=== PATIENT | male | born 1940 | race Caucasian/White ===

== ENCOUNTER → 2017-04-08 11:04 | Outpatient (CLI) | payer MEDICARE, BC ==
[2015-06-08 07:26] VITALS: BMI 25.8
[~2017-04-08 11:04] MED LIST: ACETAMINOPHEN500 M1 PO; BAYER CHEWABLE81 MG PO; CIPRO250 MG PO; FEXOFENADINE HC60 MG PO; FISH OIL 1,0001 CA1 PO; MUCINEX600 MG PO; PERCOCET 5-3251 TAB PO; VITAMIN D2000 UNIT PO; ZESTRIL20 MG PO; ZOCOR40 MG PO
== END | disposition home or self-care (01) ==
LOC: D.CT 03-29 11:30
DX: R91.1 Solitary pulmonary nodule (principal)

== ENCOUNTER → 2017-11-19 13:18 | Outpatient (CLI) | payer MEDICARE, BC ==
[2015-06-08 07:26] VITALS: BMI 25.8
--- NOTE | ~2017-11-19 | EC ---
PATIENT:CANDIDO BRYSON DATE OF SERVICE: 11/19/17 SEX: M MEDICAL RECORD: [id number] DATE OF : 36 LOCATION:[facility] AGE OF PATIENT: 76 ADMISSION DATE: 11/19/17 REFERRING PHYSICIAN: INTERPRETING PHYSICIAN: ROXANNA ADKINS MD ECHOCARDIOGRAM REPORT ECHO CHARGES 4 ECHO COMPLETE CLINICAL DIAGNOSIS: CHEST PAIN/CAROTID BRUIT ECHOCARDIOGRAPHIC MEASUREMENTS (adult normal given) AC root (d.<3.7cm) 3.5 cm LV Septum d (<1.2 cm> 1.3 cm Valve Excursion 1.2 cm LV Septum (systole) 1.5 cm Left Atria (s.<4.0cm> 3.8 cm LVPW d(<1.2cm) 1.7 cm RV (d.<2.3cm) 3.2 cm LVPW (sytole) 2.1 cm LV diastole(<5.6CM) 4.9 cm MV E-F(>70mm/sec) cm LV systole 3.4 cm LVOT Diameter 1.3 cm MV exc.(>10mm) 1.2 cm Est.ejection fraction (50-75%) % Pericardial Effusion N DOPPLER: LVIT cm/sec A 101 cm/sec E 57.0 cm/sec LA cm/sec RVSP 38 mmHg LVOT 76 cm/sec AOP1/2T m/s Asc. Ao 191 cm/sec RVOT cm/sec RA cm/sec PA cm/sec AV Gradient Peak 14.65mmHg AV Mean 7.59 mmHg AV Area 1.0 cm MV Gradient Peak 5.69 mmHg MV Mean 2.01 mmHg MV Area cm COMMENTS: Geological Sample Tester: Hansa ASCENCIO Gifts Officer: 4 Dr. Adkins TAPE# PACS DATE OF SERVICE: 11/19/2017 PROCEDURE: Transthoracic echocardiogram. FINDINGS: 1. There is moderate concentric left ventricular hypertrophy with inflow characteristics consistent with diastolic dysfunction. 2. The left atrium is normal size, normal function. 3. The aortic valve appears to be thickened and sclerotic, is not well visualized, but there is no significant velocity across the aortic valve, but ECHOCARDIOGRAM REPORT [id number] CANDIDO BRYSON appears to have at least mild aortic stenosis. 4. The right ventricle is dilated with right ventricular hypertrophy with normal function. 5. The right atrium is dilated. 6. The mitral valve has mild mitral regurgitation. There is no obvious structural abnormalities. There is proximal flow convergence in the mitral valve. 7. The tricuspid valve has mild tricuspid regurgitation. RVSP at 38 mmHg. 8. The pericardium is normal. CONCLUSION: The patient has evidence of hypertensive heart disease. There is actually one area where there appears to be inferior basilar hypokinesis with possible resultant regional wall motion abnormalities, which would be consistent with possible previous infarction. TRANSINT:[id number] Voice Confirmation ID: [id number] DOCUMENT ID: [id number] ROXANNA ADKINS MD at 1252 CC: [id number] DICTATION DATE: 11/20/17 0923 SCOW DERRICK OPERATOR: 11/20/17 1230 [facility] CLI 11/19/17 [id number] [place] [address]
[~2017-11-19 13:18] MED LIST changes: -ACETAMINOPHEN500 M1 PO; +APAP325 MG PO; +FEXOFENADINE H180 MG PO; -FEXOFENADINE HC60 MG PO; -FISH OIL 1,0001 CA1 PO; +FISH OIL 1,2001 CAP PO; +TUMERIC CURCUMIN PO; +VITAMIN D31000 UNIT PO
== END | disposition home or self-care (01) ==
LOC: D.ECHO 13:18
DX: R07.9 Chest pain, unspecified (principal); R00.2 Palpitations; Z01.810 Encounter for preprocedural cardiovascular examination; R09.89 Other specified symptoms and signs involving the circulatory and respiratory systems

== ENCOUNTER 2017-11-22 07:48 | Outpatient (CLI) | payer MEDICARE, BC ==
[~2017-11-22] VITALS: Ht 177.8 cm; Wt 77.3 kg
--- NOTE | ~2017-11-22 | HEMODYNAMI ---
PATIENT:CANDIDO BRYSON MEDICAL RECORD: [id number] : 36 LOCATION:[facility] ADMISSION DATE: 11/22/17 Generatedon:11/22/20179:39 Patient name: CANDIDO BRYSON Patient #: [id number] SSN: : Date of study: 11/22/2017 Page: Of Hemodynamic Procedure Report Patient Data Patient Demographics Procedure consent was obtained First Name: CANDIDO Gender: Male Last Name: BRAYDON : 1940 Middle Initial: W Age: 76 year(s) Patient #: [id number] Race: Unknown Additional ID: [id number] Contact details Address: [address] [place] [address] State: [place] City: [facility] Zip code: [address] Past Medical History Allergies: No known allergies Admission Admission Data Admission Date: 11/22/2017 Admission Time: 7:48 Weight (lbs.): 174 Weight (kg.): 78.93 Lab Results Lab Result Date: 11/22/2017 Lab Result Time: 0:00 Biochemistry Name Units Result Min Max BUN mg/dl 18 --(---*)-- 7 18 Creatinine mg/dl 1.5 --(----)-* 0.6 1.3 CBC Name Units Result Min Max Hemoglobin g/dl 15 --(-*--)-- 13.5 17.5 Procedure Procedure Types Cath Procedure Diagnostic Procedure [facility] w/Coronaries Procedure Description Procedure Date Procedure Date: 11/22/2017 Procedure Start Time: 9:24 Procedure End Time: 9:38 Procedure Staff Name Function Ehsan Shaikh MD Performing Physician Anuradha Russell RT Monitor Leighton Avila RT Scrub Neil Ohara RN Nurse Procedure Data Cath Procedure Fluoroscopy Diagnostic fluoroscopy Total fluoroscopy Time: 2.2 time: 2.2 min min Diagnostic fluoroscopy Total fluoroscopy dose: 473 dose: 473 mGy mGy Contrast Material Contrast Material Type Amount (ml) Isovue 300 46 Entry Location Entry Primary Successful Side Size Upsize Upsize Entry Closure Chang ccessful Closure Location (Fr) 1 (Fr) 2 (Fr) Remarks Device Remarks Radial Right 6 Fr Mechanical artery Short Compression Estimated blood loss: 5 ml Diagnostic catheters Device Type Used For End Catheter Placement DIAGNOSTIC [place] 110cm 5 Procedure Fr catheter ([id number]) Procedure Complications No complications Procedure Medications Medication Administration Route Dosage Oxygen NC 2 l/min 0.9% NaCl I.V. 100 ml/hr Heparin Flush Bag added to field 2 bags (1000units/500ml NS) Radial Cocktail added to field 1 syringe (Verapomil 2mg/Nitro 400mcg/Heparin 1500units) Fentanyl I.V. 50 mcg Versed I.V. 1 mg Radial Cocktail I.A. 1 syringe (Verapomil 2mg/Nitro 400mcg/Heparin 1500units) Fentanyl I.V. 50 mcg Hemodynamics Rest HGB: 15 (g/dl) Heart Rate: 74 (bpm) Pressure Samples Time Site Value (mmHg) Purpose Heart Use Rate(bpm) 9:33 LV 120/-3,7 EDP 75 Snapshots Pre Cath Intra NCS Post Cath Vital Signs Time Heart Resp SPO2 etCO2 NIBP (mmHg) Rhythm Pain Sedation Rate (ipm) (%) (mmHg) Status Level (bpm) 9:07:46 84 16 98 0 145/86(118) NSR 0 (11) 10(A) , No pain 9:12:55 74 16 96 2.2 166/97(134) NSR 0 (11) 10(A) , No pain 9:17:33 70 15 96 0 165/90(118) NSR 0 (11) 10(A) , No pain 9:22:12 76 16 96 8.4 154/93(126) NSR 0 (11) 10(A) , No pain 9:26:45 78 15 100 9.9 135/76(110) NSR 0 (11) 9(A) , No pain 9:31:19 68 16 95 11.4 124/70(96) NSR 0 (11) 9(A) , No pain 9:35:51 68 15 96 20.6 132/74(96) NSR 0 (11) 9(A) , No pain Medications Time Medication Route Dose Verified Delivered Reason Notes E ffectiveness by by 9:14:28 Oxygen NC 2 l/min Ehsan Neil Per Neel car MD 9:14:39 0.9% NaCl I.V. 100 Ehsan Neil Per ml/hr Neel car MD 9:14:47 Heparin Flush added 2 bags Ehsan Neil used for Bag to Neel Ohara RN procedure (1000units/500ml field BUCKNER NS) 9:14:56 Radial Cocktail added 1 Ehsan Neil used for (Verapomil to syringe Neel Ohara RN procedure 2mg/Nitro field BUCKNER 400mcg/Heparin 1500units) 9:16:26 Fentanyl I.V. 50 mcg Ehsan Neil for sedation Neel Ohara RN, MD 9:16:32 Versed I.V. 1 mg Ehsanjerson Adamsy for sedation Neel Ohara RN, MD 9:25:51 Radial Cocktail I.A. 1 Ehsan Ehsan for (Verapomil syringe Neel Shaikh MD vasodilation 2mg/Nitro MD 400mcg/Heparin 1500units) 9:30:45 Fentanyl I.V. 50 mcg Ehsan Neil for sedation Neel Ohara RN, MD Procedure Log Time Note 8:45:31 Neil Ohara RN sent for patient. Start room use. 8:54:09 Time tracking: Regular hours 8:54:14 Plan of Care:Hemodynamics will remain stable., Cardiac rhythm will remain stable., Comfort level will be maintained., Respiratory function will remain adequate., Patient/ family verbilizes understanding of procedure., Procedure tolerated without complication., Recovers from procedure without complications.. 8:55:27 H&P Date Dictated: 11/21/2017 Within 30 days and on chart., H&P Addendum completed by physician on day of procedure. (MUST COMPLETE FOR ALL OUTPATIENTS). 8:55:48 Patient Weight : 174 lbs 8:56:12 Patient allergic to No known allergies 8:58:40 Lab Result : BUN 18 mg/dl 8:58:40 Lab Result : Creatinine 1.5 mg/dl 8:58:40 Lab Result : Hemoglobin 15 g/dl 9:01:44 Patient received from Pre/Post Procedure Room to CCL 1 Alert and oriented. Tansferred to table in Supine position. 9:01:46 Warm blankets applied, and aime hugger turned on for patient comfort. 9:01:46 Correct patient and procedure confirmed by team. 9:01:48 Signed procedure consent form obtained from patient. 9:01:49 ECG and BP/O2 sat monitors applied to patient. 9:06:56 Vital chart was started 9:14:28 Oxygen 2 l/min NC was administered by Neil Ohara RN; Per physician; 9:14:38 Baseline sample Acquired. 9:14:39 0.9% NaCl 100 ml/hr I.V. was administered by Neil Ohara RN; Per physician; 9:14:41 Rhythm: sinus rhythm 9:14:43 Full Disclosure recording started 9:14:44 Pre-procedure instructions explained to patient. 9:14:44 Pre-op teaching completed and patient verbalized understanding. 9:14:46 Family in patients room. 9:14:47 Heparin Flush Bag (1000units/500ml NS) 2 bags added to field was administered by Neil Ohara RN; used for procedure; 9::49 Patient NPO since Midnight. 9:14:51 Is the patient allergic to Iodine/contrast media? No. 9:14:56 Radial Cocktail (Verapomil 2mg/Nitro 400mcg/Heparin 1500units) 1 syringe added to field was administered by Neil Ohara RN; used for procedure; 9:14:57 Is patient on blood thinner?Yes 9:15:05 ACC The patient was administered the following blood thiners within the last 24 hours: ACCPlavix 9:15:08 Patient diabetic? No. 9:15:14 Previous problem with sedation/anesthesia? No ? 9:15:17 Snore? Yes 9:15:20 Sleep apnea? No 9:15:22 Deviated septum? No 9:15:23 Opens mouth fully? Yes 9:15:24 Sticks out tongue? Yes 9:15:27 Airway obstruction? No ? 9:15:34 Dentures? Yes IN TIGHT 9:15:37 Modified Jan's test Ulnar < 7 seconds 9:15:39 Patient pain scale 0/10 ?. 9:15:46 IV patent on arrival in left hand with 0.9% NaCl at O. 9:15:50 Lab results completed and on chart. 9:15:55 Right Radial & Right Groin area was prepped with chlora-prep and draped in sterile fashion 9:15:57 Alarms reviewed by R. N. 9:15:57 Sharps counted by scrub and verified by R.N. 9:15:58 --------ALL STOP TIME OUT------ 9:15:58 Final Timeout: patient, procedure, and site verified with staff and physician. All members of the team are in agreement. 9:16:00 Right Radial & Right Groin site verified by team. 9:16:03 Physical assessment completed. ASA score P 2 - A patient with mild systemic disease as per Ehsan Shaikh MD. 9:16:07 Sedation plan: IV Moderate Sedation Medication:Versed, Fentanyl 9:16:26 Fentanyl 50 mcg I.V. was administered by Neil Ohara RN; for sedation; 9:16:32 Versed 1 mg I.V. was administered by Neil Ohara RN; for sedation; 9:20:22 Use device set Radial Dx or PCI 9:20:23 ACIST Syringe (14085) opened to sterile field. 9:20:24 Bag Decanter (2002) opened to sterile field. 9:20:25 ACIST Hand Control (03248) opened to sterile field. 9:20:26 ACIST Manifold (31273) opened to sterile field. 9:20:26 Tegaderm 4 x 4 (1626W) opened to sterile field. 9:20:28 Medline Cath Pack ([id number]) opened to sterile field. 9:20:30 SHEATH 6FR Slender ([id number]) opened to sterile field. 9:20:32 DIAGNOSTIC WIRE .035 260cm J wire (288618) opened to sterile field. 9:20:32 MBrace Wrist Support ([id number]) opened to sterile field. 9:21:55 Zero performed for pressure channel P1 9:24:13 Procedure started. 9:24:18 Local anesthetic to right radial artery with Lidocaine 2% by Ehsan Shaikh MD.INITIAL ACCESS ONLY 9:25:09 A 6 Fr Short sheath was inserted into the Right Radial artery 9:25:39 A DIAGNOSTIC [place] 110cm 5 Fr catheter (332503) was advanced over the wire and used for Procedure. 9:25:51 Radial Cocktail (Verapomil 2mg/Nitro 400mcg/Heparin 1500units) 1 syringe I.A. was administered by Ehsan Shaikh MD; for vasodilation; 9:27:30 LCA angiography performed. 9:30:03 RCA angiography performed. 9:30:45 Fentanyl 50 mcg I.V. was administered by Neil Ohara RN; for sedation; 9:31:56 GLIDE WIRE ANGLE 260cm (ZL9500) opened to sterile field. 9:32:34 GLIDEWIRE USED TO CROSS VALVE FOR LV GRAM 9:32:53 LV gram done using WINTERS 9:32:56 Injector settings: Ml/sec: 12, Volume: 8, 9:33:19 LV hemodynamics recorded. 9:34:05 EF : 65 % 9:34:14 Catheter removed. 9:34:17 TR BAND Standard ([id number]) opened to sterile field. 9:34:36 Sheath removed intact; hemostasis achieved with Mechanical Compression to the Right Radial artery. 9:34:39 Procedure ended.(Physican Out) 9:35:04 Fluoroscopy time 02.20 minutes. 9:35:08 Fluoroscopy dose: 473 mGy 9:35:08 Flurop Dose total: 473 9:35:12 Contrast amount:Isovue 300 46ml. 9:35:15 TR band inflated with 13cc of air. 9:35:22 Post-procedure physical assessment completed. ASA score P 2 - A patient with mild systemic disease as per Ehsan Shaikh MD. 9:36:15 Post procedure rhythm: unchanged. 9:36:17 Estimated blood loss: 5 ml 9:36:19 Post procedure instruction explained to patient.Patient verbalizes understanding. 9:36:20 Patient needs reinforcement of post procedure teaching. 9:36:26 Procedure type changed to Cath procedure, Diagnostic procedure, LHC, LHC w/Coronaries 9:37:43 Procedure and supply charges have been captured, reviewed, submitted and are correct. 9:37:45 Procedure Complication : No complications 9:38:46 Vital chart was stopped 9:38:46 See physician's report for complete and final results. 9:38:48 Report given to Pre/Post Procedure Room. 9:38:50 Patient transfered to Pre/Post Procedure Room with Bed. 9:38:51 Procedure ended. 9:38:51 Full Disclosure recording stopped 9:39:07 End room use (Document Last) Device Usage Item Name Manufacture Quantity Catalog Hospital Part Current Minima l Lot# / Number Charge Number Stock Stock Serial# Code ACIST Acist 1 20220 310490 565460 521550 20 Syringe Medical (90165) Systems Inc Bag Decanter Microtek 1 2001S 953855 99519 389980 5 (2001S) Medical Inc. ACIST Hand Acist 1 41668 046667 128717 952786 5 Control Medical (77871) Systems Inc ACIST Acist 1 00749 339790 792445 681334 5 Manifold Medical (52058) Systems Inc Tegaderm 4 x 3M 1 1626W 831305 610125 493302 5 4 (1626W) Medline Cath Cardinal 1 [id number] 577677 64854 271518 5 [facility] ([id number]) SHEATH 6FR Terumo 1 [id number] 725786 204666 579958 40 Slender ([id number]) DIAGNOSTIC [facility] [place] 1 930129 782015 236655 519249 30 WIRE .035 260cm J wire (841955) MBrace Wrist Advanced 1 140-0250-00 181598 48877 565829 5 Support Vascular ([id number]) Dynamics DIAGNOSTIC Terumo 1 40-5403 429568 314399 399046 5 [place] 110cm 5 Fr catheter (799737) GLIDE WIRE Terumo 1 CE3918 413980 721087 355600 5 ANGLE 260cm (PZ1512) TR BAND Terumo 1 UVY74-QCG 078250 328605 354623 40 Standard ([id number]) Signature Audit [place] Stage Time Signature Unsigned Intra-Procedure 11/22/2017 Anuradha Russell 9:39:18 AM RT(R) Signatures Monitor : Anuradha Russell Signature : RT Date : Time : [facility] [address] [place] [address]
[~2017-11-22 07:48] MED LIST changes: +ACETAMINOPHEN500 M1 PO; -APAP325 MG PO; -FEXOFENADINE H180 MG PO; +FEXOFENADINE HC60 MG PO; +FISH OIL 1,0001 CA1 PO; -FISH OIL 1,2001 CAP PO; -TUMERIC CURCUMIN PO; -VITAMIN D31000 UNIT PO
[2017-11-22 08:34] VITALS: BP 181/100; Ht 177.8 cm; Wt 77.3 kg
[2017-11-22 08:42] LABS: BASOPHILS 0.2 % (0-2); EOSINOPHILS 3.2 % (0-7); IMMATURE GRANULOCYTES 0.1 % (0-5); MCH 29.6 pg (26.0-34.0); MCHC 32.6 g/dL (31.0-37.0); MCV 90.7 fL (80.0-100.0); MEAN PLATELET VOLUME 11.7 fL (7.4-10.4); MONOCYTES 6.5 % (2-11); PLATELET COUNT 145 10x3/uL (130-400); RBC 5.07 10x6/uL (4.20-6.10); RDW 13.3 % (11.5-14.5); WBC 8.9 10x3/uL (4.8-10.8)
[2017-11-22 08:51] LABS: CALCIUM 8.9 mg/dL (8.5-10.1); CARBON DIOXIDE 31.1 mmol/L (21.0-32.0); CREATININE - SERUM 1.5 mg/dL (0.6-1.3); POTASSIUM - SERUM 4.1 mmol/L (3.5-5.1)
== END 2017-11-22 12:13 | disposition home or self-care (01) ==
LOC: D.CATH 07:48
PROVIDERS: Internal Medicine Cardiovascular Disease
DX: I25.10 Atherosclerotic heart disease of native coronary artery without angina pectoris (principal); I70.0 Atherosclerosis of aorta; Z01.812 Encounter for preprocedural laboratory examination

== ENCOUNTER 2017-12-04 06:00 | Inpatient (IN) | payer MEDICARE, BC ==
[2017-12-02 10:40] LABS: APPEARANCE CLEAR (CLEAR); BASOPHILS 0.3 % (0-2); COLOR YELLOW (YELLOW); EOSINOPHILS 3.1 % (0-7); HEMATOCRIT 46.2 % (42.0-54.0); HEMOGLOBIN 15.1 g/dL (13.5-17.5); IMMATURE GRANULOCYTES 0.1 % (0-5); LYMPHOCYTES 23.9 % (15-50); MCH 29.4 pg (26.0-34.0); MCHC 32.7 g/dL (31.0-37.0); MCV 89.9 fL (80.0-100.0); MEAN PLATELET VOLUME 11.3 fL (7.4-10.4); MONOCYTES 8.3 % (2-11); NEUTROPHILS 64.3 % (40-80); PLATELET COUNT 148 10x3/uL (130-400); RBC 5.14 10x6/uL (4.20-6.10); WBC 7.9 10x3/uL (4.8-10.8)
[2017-12-02 10:41] LABS: BILIRUBIN NEGATIVE (NEGATIVE); GLUCOSE NEGATIVE (NEGATIVE); KETONE NEGATIVE (NEGATIVE); NITRITE NEGATIVE (NEGATIVE); PROTEIN NEGATIVE (NEGATIVE); SPECIFIC GRAVITY 1.015 (1.005-1.020); UROBILINOGEN NORMAL (NORMAL)
[2017-12-02 10:51] LABS: INR 0.99 (0.85-1.17); PROTIME 12.7 SECONDS (11.6-15.0)
[2017-12-02 10:52] LABS: APTT 27.6 SECONDS (22.8-39.4)
[2017-12-02 10:57] LABS: HEMOGLOBIN A1C 6.4 % (4.8-6.0)
[2017-12-02 11:08] LABS: ALBUMIN 3.9 g/dL (3.4-5.0); ANION GAP 10.6 mmol/L (8-16); BILIRUBIN - TOTAL 0.5 mg/dL (0.2-1.3); CALCIUM 8.9 mg/dL (8.5-10.1); CREATININE - SERUM 1.4 mg/dL (0.6-1.3); PHOSPHOROUS 3.4 mg/dL (2.5-4.9); POTASSIUM - SERUM 4.6 mmol/L (3.5-5.1); PROTEIN - SERUM 7.3 g/dL (6.4-8.2); T4 THYROXIN - FREE 1.13 ng/dL (0.76-1.46); THYROID STIMULATING HORMONE 1.07 uIU/mL (0.36-3.74)
[2017-12-02 11:11] LABS: COLD SCREEN @ 4 DEGREES 2+ (NEGATIVE); COLD SCREEN ROOM TEMP NEGATIVE (NEGATIVE)
[2017-12-03 15:24] LABS: HEPATITIS C ANTIBODY <0.1 (0.0-0.9)
[~2017-12-04] VITALS: Ht 181.6 cm; Wt 80.6 kg
[2017-12-04] VITALS (40 sets, daily range): BP systolic 101–143; BP diastolic 22–65; BMI 23.4; BMI 25.0
--- NOTE | ~2017-12-04 | TEE ---
PATIENT:CANDIDO BRYSON MEDICAL RECORD: [id number] LOCATION:[place] [address] AGE OF PATIENT: 77 ADMISSION DATE: 12/04/17 SEX: M REFERRING PHYSICIAN: INTERPRETING PHYSICIAN: ROXANNA ADKINS MD TRANSESOPHAGEAL ECHOCARDIOGRAM SCOTT CHARGE Y INDICATIONS: CABG PREMEDICATIONS: PATIENT'S RESPONSE PROCEDURE DOPPLER MEASUREMENTS: LVIT LA PA RA LVOT RVOT Asc. Ao AV Gradient Peak AV Mean AV Area MV Gradient Peak MV Mean MV Area INTERPRETATION: LVd: 3.7 cm LVs: 2.1 cm Doppler: 2-D: COLOR FLOW DOPPLER NORMAL SALINE STUDY: MISCELLANOUS: DIAGNOSIS: PLAN: Circular Distributor:4 Dr. Adkins [employer] Specialist: 1 DEMAR VARGHESE COMMENTS: DATE OF SERVICE: 12/04/2017 PROCEDURE: Transesophageal echocardiogram. FINDINGS: 1. Post-CABG imaging shows hyperdynamic posterior wall and lateral wall. Anterior de jesus are mildly hyperdynamic. 2. The mitral valve shows mild mitral regurgitation. 3. There is no significant pericardial effusion. TRANSESOPHAGEAL ECHOCARDIOGRAM REPORT [id number] CANDIDO BRYSON 4. The right-sided structures appear to be grossly normal. 5. The aortic valve is trileaflet with mild sclerotic changes, no evidence of significant stenosis or regurgitation. 6. The pulmonic valve shows mild pulmonic insufficiency. TRANSINT:[id number] Voice Confirmation ID: [id number] DOCUMENT ID: [id number] 12/11/2017 Edited to correct date of service and job type, dmm. at 0942 CC: [id number] DICTATION DATE: 12/05/17 0751 FISHER EEL: 12/05/17 0805 DIS IN 12/10/17 [address] [place] [address]
--- NOTE | ~2017-12-04 | OP ---
PATIENT NAME: CANDIDO BRYSON MEDICAL RECORD: [id number] :36 LOCATION:[facility] D.CV05 ADMISSION DATE:12/04/17 SURGEON: LINDSEY LAI MD DATE OF OPERATION: 12/04/2017 SURGEON: Lindsey Lai MD ANESTHESIA: General endotracheal, Dr. Lee. OPERATION PERFORMED: 1. Coronary artery bypass. 2. Left internal thoracic to the left anterior descending. 3. Reverse saphenous vein graft to the obtuse marginal coronary artery. 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 INDICATION FOR OPERATION: Angina pectoris. FINDINGS OF THE OPERATION: The left anterior descending was a 2.5 mm vessel, diffusely diseased. The obtuse marginal was severely diseased, but graftable in an area that was 2.5 mm in diameter. The left internal thoracic and greater saphenous vein graft were of excellent quality. ESTIMATED BLOOD LOSS: Cell Saver was used. DESCRIPTION OF PROCEDURE: After informed consent, adequate preoperative medication evaluation, the patient was brought to the operating room, placed on the table in the supine position. After induction of general endotracheal anesthesia and application of appropriate monitoring devices, the chest, neck, abdomen, and both legs were prepped and draped in a sterile field, utilizing Betadine scrub, alcohol, and Betadine solution. A Betadine-impregnated drape was also used. Saphenous vein was harvested from the right lower thigh and prepared for reverse saphenous vein grafting. The leg was closed over drains utilizing 3-0 Vicryl and skin deangelo. A median sternotomy incision was made and dissection carried down the fascia. Hemostasis maintained with electrocautery. Sternum was divided. Innominate vein was identified and protected. Left internal thoracic was taken down and prepared for grafting. The patient was given a calculated dose of heparin, cannulated in the standard fashion utilizing 1 aortic, one two-stage cannula in the atrium and inferior vena cava. The patient was placed on cardiopulmonary bypass, cooled to 27 degrees centigrade. A cross clamp was placed just proximal to the aortic cannula and the patient was given cardioplegic solution through the aortic root. The patient was given a cold induction and cold maintenance. The patient was given cold intermittent cardioplegic solution throughout the procedure through the graft, through the root or combination of both. The first vessel to be grafted was the obtuse marginal coronary artery. It was grafted end-to-side utilizing a running 7-0 Prolene suture. The grafts were measured back to the aorta and a proximal anastomosis fashioned utilizing running 6-0 Prolene suture. The distal right was too small to graft as was the distal circumflex. OPERATIVE REPORT [id number] CANDIDO BRYSON The left internal thoracic was brought through the hole in pericardium, sutured left anterior descending end-to-side utilizing a running 8-0 Prolene suture. Pedicle was attached to epicardium with 6-0 Prolene suture. All maneuvers to remove trapped air were performed. The patient was given warm cardioplegic reperfusion and controlled reperfusion. The patient rewarmed to 37 degrees centigrade. Two atrial and 2 ventricular pacing wires were placed on the heart and brought out through the epigastric area. The patient was weaned cardiopulmonary bypass. After being stable off bypass, given calculated dose of protamine to reverse the heparin. Hemostasis was achieved. A #40 right angle and #36 chest tubes were brought in through the epigastric area and placed in mediastinum. A separate left pleural tube was connected to underwater seal and suction. Chest was again irrigated. Instrument count and sponge count were correct times 2. Chest was closed in layers utilizing #7 wire on the sternum, #2 Vicryl on linea alba and pectoralis fascia, subcutaneous tissue was approximated with 3-0 Vicryl and skin approximated with 3-0 subcuticular Vicryl. Sterile dressings were applied. The patient tolerated the procedure well and was transferred to the CV ICU in satisfactory condition. TRANSINT:[id number] Voice Confirmation ID: [id number] DOCUMENT ID: [id number] LINDSEY LAI MD at 0829 CC: [id number] DICTATION DATE: 12/04/17 1348 SQUEEGEE OPERATOR: 12/04/17 1441 ADM IN [place] [id number] [place] [address]
[~2017-12-04 06:00] MED LIST changes: -ACETAMINOPHEN500 M1 PO; +APAP325 MG PO; +FEXOFENADINE H180 MG PO; -FEXOFENADINE HC60 MG PO; -FISH OIL 1,0001 CA1 PO; +FISH OIL 1,2001 CAP PO; +TUMERIC CURCUMIN PO; +VITAMIN D31000 UNIT PO
[2017-12-04 07:58] LABS: PLT FUNCT.(P2Y12) PLAVIX 298 PRU (194-418)
[2017-12-04 12:59] LABS: ANION GAP 13.5 mmol/L (8-16); CALCIUM 7.3 mg/dL (8.5-10.1); CARBON DIOXIDE 24.7 mmol/L (21.0-32.0); CREATININE - SERUM 1.1 mg/dL (0.6-1.3); POTASSIUM - SERUM 4.2 mmol/L (3.5-5.1)
[2017-12-04 13:09] LABS: INR 1.61 (0.85-1.17); PROTIME 18.6 SECONDS (11.6-15.0)
[2017-12-04 13:10] LABS: APTT 36.6 SECONDS (22.8-39.4)
[2017-12-04 13:24] LABS: HEMATOCRIT 32.6 % (42.0-54.0); HEMOGLOBIN 10.7 g/dL (13.5-17.5); MCH 28.8 pg (26.0-34.0); MCHC 32.8 g/dL (31.0-37.0); MCV 87.9 fL (80.0-100.0); RBC 3.71 10x6/uL (4.20-6.10); WBC 13.5 10x3/uL (4.8-10.8)
[2017-12-05] VITALS (98 sets, daily range): BP systolic 95–148; BP diastolic 43–89; Ht 181.6 cm; Wt 80.6 kg
[2017-12-05 06:13] LABS: HEMATOCRIT 29.5 % (42.0-54.0); HEMOGLOBIN 9.4 g/dL (13.5-17.5); MCH 28.3 pg (26.0-34.0); MCHC 31.9 g/dL (31.0-37.0); MCV 88.9 fL (80.0-100.0); MEAN PLATELET VOLUME 11.5 fL (7.4-10.4); PLATELET COUNT 81 10x3/uL (130-400); RBC 3.32 10x6/uL (4.20-6.10); RDW 13.4 % (11.5-14.5)
[2017-12-05 06:42] LABS: ALBUMIN 3.8 g/dL (3.4-5.0); ANION GAP 10.2 mmol/L (8-16); BILIRUBIN - TOTAL 1.37 mg/dL (0.2-1.3); CALCIUM 9.4 mg/dL (8.5-10.1); CARBON DIOXIDE 28.6 mmol/L (21.0-32.0); CREATININE - SERUM 1.3 mg/dL (0.6-1.3); POTASSIUM - SERUM 4.8 mmol/L (3.5-5.1); PROTEIN - SERUM 5.4 g/dL (6.4-8.2)
[2017-12-05 07:09] LABS: PLATELET ESTIMATE DECREASED
[2017-12-06] VITALS (81 sets, daily range): BP systolic 40–146; BP diastolic 40–77
[2017-12-06 06:18] LABS: HEMATOCRIT 30.7 % (42.0-54.0); HEMOGLOBIN 9.7 g/dL (13.5-17.5); MCH 28.6 pg (26.0-34.0); MCHC 31.6 g/dL (31.0-37.0); MCV 90.6 fL (80.0-100.0); MEAN PLATELET VOLUME 11.8 fL (7.4-10.4); RBC 3.39 10x6/uL (4.20-6.10); RDW 13.8 % (11.5-14.5); WBC 11.7 10x3/uL (4.8-10.8)
[2017-12-06 06:34] LABS: ALBUMIN 3.3 g/dL (3.4-5.0); ANION GAP 12.4 mmol/L (8-16); BILIRUBIN - TOTAL 0.99 mg/dL (0.2-1.3); CALCIUM 8.3 mg/dL (8.5-10.1); CARBON DIOXIDE 29.5 mmol/L (21.0-32.0); CREATININE - SERUM 1.4 mg/dL (0.6-1.3); POTASSIUM - SERUM 4.9 mmol/L (3.5-5.1); PROTEIN - SERUM 5.9 g/dL (6.4-8.2)
[2017-12-07] VITALS (24 sets, daily range): BP systolic 103–145; BP diastolic 57–90
[2017-12-07 06:10] LABS: HEMATOCRIT 28.5 % (42.0-54.0); MCH 28.8 pg (26.0-34.0); MCHC 31.6 g/dL (31.0-37.0); MCV 91.1 fL (80.0-100.0); MEAN PLATELET VOLUME 11.7 fL (7.4-10.4); RBC 3.13 10x6/uL (4.20-6.10); RDW 13.6 % (11.5-14.5); WBC 10.5 10x3/uL (4.8-10.8)
[2017-12-07 06:26] LABS: ALBUMIN 3.1 g/dL (3.4-5.0); ANION GAP 9.7 mmol/L (8-16); BILIRUBIN - TOTAL 0.85 mg/dL (0.2-1.3); CALCIUM 8.2 mg/dL (8.5-10.1); CREATININE - SERUM 1.3 mg/dL (0.6-1.3); POTASSIUM - SERUM 4.7 mmol/L (3.5-5.1); PROTEIN - SERUM 5.9 g/dL (6.4-8.2)
[2017-12-08] VITALS (25 sets, daily range): BP systolic 105–148; BP diastolic 54–81
[2017-12-08 06:10] LABS: HEMATOCRIT 26.8 % (42.0-54.0); HEMOGLOBIN 8.4 g/dL (13.5-17.5); MCH 28.2 pg (26.0-34.0); MCHC 31.3 g/dL (31.0-37.0); MCV 89.9 fL (80.0-100.0); MEAN PLATELET VOLUME 11.1 fL (7.4-10.4); RBC 2.98 10x6/uL (4.20-6.10); RDW 13.3 % (11.5-14.5); WBC 8.9 10x3/uL (4.8-10.8)
[2017-12-08 06:32] LABS: ALBUMIN 2.7 g/dL (3.4-5.0); ALKALINE PHOSPHATASE 43 U/L (46-116); ALT (SGPT) 19 U/L (10-68); BILIRUBIN - TOTAL 1.05 mg/dL (0.2-1.3); CALC OSMOLALITY 274 mosm/kg (275-300); CALCIUM 7.7 mg/dL (8.5-10.1); CARBON DIOXIDE 28.8 mmol/L (21.0-32.0); CHLORIDE - SERUM 101 mmol/L (98-107); GLUCOSE 102 mg/dL (74-106); PROTEIN - SERUM 5.4 g/dL (6.4-8.2); SODIUM 135 mmol/L (136-145); eGFR NON AFRICAN AMERICAN 76 mL/min (90-120)
[2017-12-08 06:34] LABS: UREA NITROGEN 26 mg/dL (7-18)
[2017-12-09] VITALS (24 sets, daily range): BP systolic 100–150; BP diastolic 57–90
[2017-12-09 06:09] LABS: ANION GAP 9.1 mmol/L (8-16); CALCIUM 8.3 mg/dL (8.5-10.1); CARBON DIOXIDE 29.8 mmol/L (21.0-32.0); CREATININE - SERUM 1.1 mg/dL (0.6-1.3); POTASSIUM - SERUM 3.9 mmol/L (3.5-5.1); PROTEIN - SERUM 5.7 g/dL (6.4-8.2)
[2017-12-09 06:28] LABS: HEMATOCRIT 29.8 % (42.0-54.0); HEMOGLOBIN 9.3 g/dL (13.5-17.5); MCH 27.8 pg (26.0-34.0); MCHC 31.2 g/dL (31.0-37.0); MCV 89.2 fL (80.0-100.0); MEAN PLATELET VOLUME 10.3 fL (7.4-10.4); RBC 3.34 10x6/uL (4.20-6.10); RDW 13.2 % (11.5-14.5); WBC 8.1 10x3/uL (4.8-10.8)
[2017-12-09] MEDS ORDERED: HEMOCYTE PLUS C1 CAP PO (14:12)
[2017-12-09] MEDS ORDERED: HYDROCODONE-APA1 TAB PO (14:13)
[2017-12-09] MEDS ORDERED: CORDARONE200 MG PO (14:13)
[2017-12-10] VITALS (10 sets, daily range): BP systolic 111–150; BP diastolic 61–84
[2017-12-10] MEDS ORDERED: HYDROCODONE-APA1 TAB PO (08:01)
== END 2017-12-10 10:10 | disposition home or self-care (01) | DRG 236 ==
LOC: D.CVICU 06:00 → D.SDCHOLD 06:00 → D.CVICU 08:31
PROVIDERS: Internal Medicine Cardiovascular Disease
PROC: 021009W Bypass Coronary Artery, One Artery from Aorta with Autologous Venous Tissue, Open Approach (ICD-10-PCS; 2017-12-04)
PROC: 06BP0ZZ Excision of Right Saphenous Vein, Open Approach (ICD-10-PCS; 2017-12-04)
PROC: 5A1221Z Performance of Cardiac Output, Continuous (ICD-10-PCS; 2017-12-04)
PROC: B245ZZ4 Ultrasonography of Left Heart, Transesophageal (ICD-10-PCS; 2017-12-04)
PROC: 02100AC Bypass Coronary Artery, One Artery from Thoracic Artery with Autologous Arterial Tissue, Open Approach (ICD-10-PCS; principal; 2017-12-04 07:30)
DX: I25.119 Atherosclerotic heart disease of native coronary artery with unspecified angina pectoris (principal); I10 Essential (primary) hypertension; E78.5 Hyperlipidemia, unspecified; Z85.51 Personal history of malignant neoplasm of bladder; C67.1 Malignant neoplasm of dome of bladder; I48.0 Paroxysmal atrial fibrillation

== ENCOUNTER → 2017-12-26 12:34 | Outpatient (CLI) | payer MEDICARE, BC ==
[2017-12-05 10:34] VITALS: BMI 25.3
[~2017-12-26 12:34] MED LIST changes: +CORDARONE200 MG PO; +HEMOCYTE PLUS C1 CAP PO; +HYDROCODONE-APA1 TAB PO
[2017-12-26 13:04] LABS: HEMATOCRIT 38.2 % (42.0-54.0); MCH 28.5 pg (26.0-34.0); MCHC 31.4 g/dL (31.0-37.0); MCV 90.7 fL (80.0-100.0); MEAN PLATELET VOLUME 9.8 fL (7.4-10.4); RBC 4.21 10x6/uL (4.20-6.10); WBC 8.6 10x3/uL (4.8-10.8)
[2017-12-26 13:17] LABS: ALBUMIN 3.5 g/dL (3.4-5.0); ANION GAP 13.6 mmol/L (8-16); BILIRUBIN - TOTAL 0.68 mg/dL (0.2-1.3); CARBON DIOXIDE 26.9 mmol/L (21.0-32.0); CREATININE - SERUM 1.4 mg/dL (0.6-1.3); POTASSIUM - SERUM 4.5 mmol/L (3.5-5.1)
== END | disposition home or self-care (01) ==
LOC: D.LAB 08:15
PROVIDERS: Internal Medicine Cardiovascular Disease
DX: J91.8 Pleural effusion in other conditions classified elsewhere (principal); D64.9 Anemia, unspecified

== ENCOUNTER → 2018-07-09 17:49 | Outpatient (CLI) | payer MEDICARE, BC ==
[2017-12-05 10:34] VITALS: BMI 25.3
[2018-07-09 19:01] LABS: CHOL - HDL RATIO 3.3 ratio (2.3-4.9); LDL-HDL RATIO 1.7 ratio (1.5-3.5)
== END | disposition home or self-care (01) ==
LOC: D.LABREF 17:49
PROVIDERS: Internal Medicine Cardiovascular Disease
DX: E78.5 Hyperlipidemia, unspecified (principal)

== ENCOUNTER → 2019-01-19 08:49 | Outpatient (CLI) | payer MEDICARE, BC ==
[2017-12-05 10:34] VITALS: BMI 25.3
== END | disposition home or self-care (01) ==
LOC: D.US 01-13 11:00
PROVIDERS: ATTEND Internal Medicine Cardiovascular Disease
DX: I65.23 Occlusion and stenosis of bilateral carotid arteries (principal); I25.10 Atherosclerotic heart disease of native coronary artery without angina pectoris

== ENCOUNTER → 2019-03-03 12:55 | Outpatient (CLI) | payer MEDICARE, BC ==
[2017-12-05 10:34] VITALS: BMI 25.3
== END | disposition home or self-care (01) ==
LOC: D.HCCARDIO 12:55
PROVIDERS: ATTEND Internal Medicine Cardiovascular Disease
DX: I34.0 Nonrheumatic mitral (valve) insufficiency (principal)

== ENCOUNTER 2019-06-12 05:39 | Day surgery (SDC) | payer MEDICARE, BC ==
[~2019-06-12] VITALS: Ht 177.8 cm; Wt 79.5 kg
[~2019-06-12 05:39] MED LIST changes: +PROBIOTIC1 EAC1 PO
[2019-06-12 06:04] LABS: BASOPHILS 0.3 % (0-2); EOSINOPHILS 3.7 % (0-7); HEMATOCRIT 38.4 % (42.0-54.0); HEMOGLOBIN 12.3 g/dL (13.5-17.5); IMMATURE GRANULOCYTES 0.1 % (0-5); LYMPHOCYTES 26.2 % (15-50); MCH 26.5 pg (26.0-34.0); MCV 82.6 fL (80.0-100.0); MEAN PLATELET VOLUME 11.4 fL (7.4-10.4); MONOCYTES 7.6 % (2-11); NEUTROPHILS 62.1 % (40-80); RBC 4.65 10x6/uL (4.20-6.10); RDW 14.5 % (11.5-14.5); WBC 6.7 10x3/uL (4.8-10.8)
[2019-06-12 06:09] LABS: ANION GAP 12.1 mmol/L (8-16); CALCIUM 9.1 mg/dL (8.5-10.1); CARBON DIOXIDE 28.6 mmol/L (21.0-32.0); CREATININE - SERUM 1.7 mg/dL (0.6-1.3); POTASSIUM - SERUM 4.7 mmol/L (3.5-5.1)
[2019-06-12 06:31] LABS: PLATELET COUNT 150 10x3/uL (130-400)
[2019-06-12 06:48] LABS: APTT 27.1 SECONDS (22.8-39.4); INR 1.05 (0.85-1.17); PROTIME 13.2 SECONDS (11.6-15.0)
[2019-06-12 06:56] VITALS: BP 151/77; Ht 177.8 cm; Wt 79.5 kg
[2019-06-12] MEDS ORDERED: HYDROCODON-ACE1 EA10 PO (09:51)
--- NOTE | 2019-06-12 10:05 | NUR ---
ASKED PT IF HE HAS ANY PAIN. PT VOICES "NO". WILL CONITINUE TO MONTIOR PAIN WHILE IN PACU.
--- NOTE | 2019-06-12 16:40 | NUR ---
1500 PT HAS BEEN AMBULATING IN WONG TRYING TO PROMOTE VOIDING. PT DENIES ANY PAIN WHILE WALKING.
--- NOTE | 2019-06-12 16:42 | NUR ---
1550 IV DC'D. CATHETER TIP INTACT. PRESSURE HELD UNTIL BLEEDING CEASED. BANDAID APPLIED.
--- NOTE | 2019-06-18 07:19 | OP ---
PATIENT NAME: CANDIDO BRYSON MEDICAL RECORD: [id number] :36 LOCATION:[facility] ADMISSION DATE: SURGEON: YOGESH PERRY MD DATE OF OPERATION: 06/12/2019 PREOPERATIVE DIAGNOSES: 1. Bilateral inguinal hernias. 2. Hyperlipidemia. 3. Hypertension. 4. Coronary artery disease. POSTOPERATIVE DIAGNOSES: 1. Bilateral inguinal hernias. 2. Hyperlipidemia. 3. Hypertension. 4. Coronary artery disease. PROCEDURE: Bilateral inguinal hernia repairs with medium PHS mesh. SURGEON: Yogesh Perry MD REPORT OF PROCEDURE: The patient's abdomen was prepped and draped in sterile fashion. The right side was approached first. An oblique incision was made above the inguinal ligament. Electrocautery was used to dissect through the subcutaneous tissues down to the external oblique fascia. The fascia was incised using electrocautery down to the external ring. The spermatic cord was elevated and a [place] was placed around it. We then dissected free an indirect hernia defect and pushed to back down into the abdominal cavity. We then opened up the inguinal floor and opened the preperitoneal space of Retzius in all directions. A medium PHS mesh was inserted and sutured down on all sides using multiple interrupted 0 Vicryls. The wound was then irrigated out with normal saline. The ilioinguinal nerve was found and high ligated. We then reapproximated the external oblique fascia with running 3-0 Vicryl. Juliana's was closed with interrupted 3-0 Vicryl, and the skin was closed with running subcutaneous 5-0 Monocryl. A 10 mL of 0.25% Marcaine with epinephrine were infused into the surrounding tissues. We then approached the left side. An oblique incision was made above the inguinal ligament. Electrocautery was used to dissect through the subcutaneous tissues down to the external oblique fascia. This fascia was opened up to the external ring using electrocautery. A Haris was placed around the spermatic cord. The patient had an indirect hernia defect, which was dissected free. This defect was smaller than on the right side. Once this was freed up, it was pushed back into the abdominal cavity. An opening was made in the inguinal floor and the preperitoneal space of Retzius was opened up in all directions. A medium PHS mesh was inserted and sutured down on all sides using multiple interrupted 0 Vicryls. The patient's ilioinguinal nerve was found and high ligated. We then irrigated out the wound thoroughly with normal saline and assured there was no sign of any bleeding. The external oblique fascia was closed with running 2-0 Vicryl, Juliana's was closed with interrupted 3-0 Vicryl, and the skin was closed with running subcutaneous 5-0 Monocryl. Another 10 mL of 0.25% Marcaine with epinephrine was infused into the surrounding tissues. Mastisol and Steri-Strips were applied to the wound and a large pressure dressing was then applied. COMPLICATIONS: None. OPERATIVE REPORT [id number] CANDIDO BRYSON CONDITION: Stable. ANESTHESIA: General endotracheal and local. BLOOD LOSS: Minimal. TRANSINT:[id number] Voice Confirmation ID: [id number] DOCUMENT ID: [id number] YOGESH PERRY MD at 0719 CC: FRANCISCO MARCUS DO [id number] DICTATION DATE: 06/12/19 0957 CHANNEL PROCESS SUPERVISOR: 06/12/19 1020 [facility] 06/12/19 [address] [place] [address]
== END 2019-06-12 16:18 | disposition home or self-care (01) ==
LOC: D.OPS 05:39 → D.PAN 09:00 → D.OPS 09:00
PROVIDERS: Anesthesiology; ATTEND Surgery
DX: K40.20 Bilateral inguinal hernia, without obstruction or gangrene, not specified as recurrent (principal); E78.5 Hyperlipidemia, unspecified; I10 Essential (primary) hypertension; I25.10 Atherosclerotic heart disease of native coronary artery without angina pectoris; Z01.812 Encounter for preprocedural laboratory examination

== ENCOUNTER 2019-06-14 04:06 | Inpatient (IN) | payer MEDICARE, BC ==
[2019-06-14] VITALS (7 sets, daily range): BP systolic 101–173; BP diastolic 47–88; BMI 24.1
[~2019-06-14] VITALS: Ht 177.8 cm; Wt 76.2 kg
[~2019-06-14 04:06] MED LIST changes: +HYDROCODON-ACE1 EA10 PO
[2019-06-14 04:30] LABS: BASOPHILS 0.1 % (0-2); EOSINOPHILS 0.2 % (0-7); HEMATOCRIT 36.1 % (42.0-54.0); HEMOGLOBIN 11.9 g/dL (13.5-17.5); IMMATURE GRANULOCYTES 0.3 % (0-5); LYMPHOCYTES 7.1 % (15-50); MCH 26.9 pg (26.0-34.0); MCV 81.5 fL (80.0-100.0); MEAN PLATELET VOLUME 10.4 fL (7.4-10.4); MONOCYTES 9.8 % (2-11); NEUTROPHILS 82.5 % (40-80); PLATELET COUNT 139 10x3/uL (130-400); RBC 4.43 10x6/uL (4.20-6.10); RDW 14.7 % (11.5-14.5)
[2019-06-14 04:35] LABS: WBC 12.8 10x3/uL (4.8-10.8)
[2019-06-14 04:48] LABS: APTT 26.8 SECONDS (22.8-39.4); INR 1.11 (0.85-1.17); PROTIME 13.8 SECONDS (11.6-15.0)
[2019-06-14 04:50] LABS: D-DIMER-QUANTITATIVE 2.4 ug/mLFEU (0.20-0.54)
[2019-06-14 04:51] LABS: ALBUMIN 3.7 g/dL (3.4-5.0); ALKALINE PHOSPHATASE 70 U/L (46-116); ALT (SGPT) 17 U/L (10-68); BILIRUBIN - TOTAL 1.04 mg/dL (0.2-1.3); CALC OSMOLALITY 281 mosm/kg (275-300); CALCIUM 9.2 mg/dL (8.5-10.1); CARBON DIOXIDE 23.7 mmol/L (21.0-32.0); CHLORIDE - SERUM 102 mmol/L (98-107); GLUCOSE 126 mg/dL (74-106); POTASSIUM - SERUM 4.6 mmol/L (3.5-5.1); PROTEIN - SERUM 7.3 g/dL (6.4-8.2); SODIUM 136 mmol/L (136-145); UREA NITROGEN 35 mg/dL (7-18); eGFR NON AFRICAN AMERICAN 34 mL/min (90-120)
[2019-06-14 04:56] LABS: APPEARANCE CLEAR (CLEAR); BILIRUBIN NEGATIVE (NEGATIVE); COLOR YELLOW (YELLOW); GLUCOSE NEGATIVE (NEGATIVE); KETONE NEGATIVE (NEGATIVE); NITRITE NEGATIVE (NEGATIVE); PROTEIN NEGATIVE (NEGATIVE); UROBILINOGEN NORMAL (NORMAL)
[2019-06-14 04:57] LABS: RED CELLS - URINE 0-5 /hpf (0-5); WHITE CELLS - URINE NSEEN /hpf (0-5)
[2019-06-14 04:59] LABS: UDS - AMPHET NEGATIVE QUAL (NEGATIVE); UDS - BARB NEGATIVE QUAL (NEGATIVE); UDS - BENZO NEGATIVE QUAL (NEGATIVE); UDS - COCAINE NEGATIVE QUAL (NEGATIVE); UDS - OPIATE POSITIVE QUAL (NEGATIVE); UDS - PCP NEGATIVE QUAL (NEGATIVE); UDS - THC NEGATIVE QUAL (NEGATIVE)
[2019-06-14 05:19] LABS: CREATINE KINASE 330 UL (21-232); LIPASE 77 U/L (73-393); MAGNESIUM - SERUM 1.8 mg/dL (1.8-2.4); PRO BNP 2387 pg/mL (0-450); THYROID STIMULATING HORMONE 0.59 uIU/mL (0.36-3.74)
[2019-06-14 05:20] LABS: CKMB 4.7 U/L (0.0-3.6); TROPONIN-I < 0.017 ng/mL (0.000-0.060)
--- NOTE | 2019-06-14 05:43 | NUR ---
PT REPORTS DECREASE IN DISCOMFORT AND SOB AFTER CARVAJAL PLACEMENT. PT SPOUSE AT BEDSIDE.
--- NOTE | 2019-06-14 19:50 | NUR ---
PT ALERT & ORIENTED. DRESSINGS TO GROIN C/D/I. CARVAJAL EMPTIED FOR 1500 MLS. INSTRUCTED PT TO CALL FOR NEEDS.
[2019-06-15 04:00] VITALS: BP 125/62
[2019-06-15 05:37] LABS: BASOPHILS 0.2 % (0-2); EOSINOPHILS 2.2 % (0-7); HEMATOCRIT 32.6 % (42.0-54.0); HEMOGLOBIN 10.3 g/dL (13.5-17.5); IMMATURE GRANULOCYTES 0.2 % (0-5); LYMPHOCYTES 15.9 % (15-50); MCH 25.9 pg (26.0-34.0); MCHC 31.6 g/dL (31.0-37.0); MCV 81.9 fL (80.0-100.0); MEAN PLATELET VOLUME 11.3 fL (7.4-10.4); MONOCYTES 10.3 % (2-11); NEUTROPHILS 71.2 % (40-80); PLATELET COUNT 131 10x3/uL (130-400); RBC 3.98 10x6/uL (4.20-6.10); RDW 14.8 % (11.5-14.5)
[2019-06-15 05:44] LABS: WBC 8.5 10x3/uL (4.8-10.8)
--- NOTE | 2019-06-15 06:00 | NUR ---
PT RESTED QUIETLY ALL NIGHT. CARVAJAL CATH EMPTIED TWICE THIS SHIFT. NO OTHER NEEDS. BED LOW. CALL LIGHT IN REACH.
[2019-06-15 06:11] LABS: ANION GAP 11.5 mmol/L (8-16); BILIRUBIN - TOTAL 0.83 mg/dL (0.2-1.3); CALCIUM 8.9 mg/dL (8.5-10.1); CARBON DIOXIDE 26.8 mmol/L (21.0-32.0); POTASSIUM - SERUM 4.3 mmol/L (3.5-5.1); PROTEIN - SERUM 6.1 g/dL (6.4-8.2)
[2019-06-15 06:13] LABS: ALBUMIN 2.7 g/dL (3.4-5.0)
--- NOTE | 2019-06-15 07:59 | NUR ---
PATIENT RESTING IN BED, NO NEEDS VOICED. CARVAJAL CATH PATENT WITH CLEAR YELLOW URINE TO BEDSIDE DRAINAGE. CL IN REACH
[2019-06-15 09:02] VITALS: BP 81/52
--- NOTE | 2019-06-15 12:10 | MORECARE ---
CASE MANAGEMENT DISCHARGE SUMMARY PATIENT: CANDIDO LIZ UNIT: [id number] ADM DATE: 06/14/19 AGE: 78 : 38 SEX: M ROOM/BED: D.2231 AUTHOR: AUGIE LATHAM PHYSICIAN: REFERRING PHYSICIAN: AP PALACIOS DO DATE OF SERVICE: 06/15/19 Discharge Plan Patient Name: CANDIDO LIZ Facility: [facility]:[place] : 1940 Planned Disposition: Home Anticipated Discharge Date: 06/16/19 Discharge Date: Expected LOS: 2 Initial Reviewer: [email or web address] Initial Review Date: 06/15/2019 Generated: 06/15/19 1:10 pm DCPIA - Discharge Planning Initial Assessment Updated by ELLIOTT: Antonella Gandara on 06/15/19 12:06 pm * Is the patient Alert and Oriented? Yes * How many steps to enter\exit or inside your home? 3/0 * PCP Dr. Koenig * Pharmacy [facility] * Preadmission Environment Home with Family * ADLs Independent * Equipment None * List name and contact numbers for known caregivers / representatives who currently or will assist patient after discharge: Jazmyn Liz - [facility] - [phone] * Verbal permission to speak to the caregivers and representatives has been obtained from the patient. Yes * Community resources currently utilized None * Additional services required to return to the preadmission environment? No * Can the patient safely return to the preadmission environment? Yes * Has this patient been hospitalized within the prior 30 days at any hospital? No Coverage Notice Reviewer: [email or web address] Gandara Notice Issued Date-Time: 06/15/2019 11:30 Notice Type: Medicare Outpatient Observation Notice Notice Delivered To: Patient Relationship to Patient: Self Electronic Masking System Operator Name: Delivery Method: HAND - Hand Delivered Cece Days: Prior Verbal Notification: Recipient Understood Notice: Yes Recipient Signature: Yes Med Rec Note Co-signed by Attending: Coverage Notice Comment: SHERRI explained, signed, given, copy placed in MR Reviewer: [email or web address] Gandara Notice Issued Date-Time: 06/15/2019 11:39 Notice Type: Patient Choice Letter Notice Delivered To: Patient Relationship to Patient: Self Electronic Masking System Operator Name: Delivery Method: HAND - Hand Delivered Cece Days: Prior Verbal Notification: Recipient Understood Notice: Yes Recipient Signature: Yes Med Rec Note Co-signed by Attending: Coverage Notice Comment: Refused HHS Patient Name: CANDIDO LIZ Page [phone] at 1210 All edits/amendments must be made on the electronic document DICTATION DATE: 06/15/191208 SNUFF PACKING MACHINE OPERATOR: NANETTE 06/15/191208 RPT#: [id number] DC DATE: STATUS: ADM IN [facility] [address] [place] [address] END OF REPORT
--- NOTE | 2019-06-15 12:18 | MORECARE ---
CASE MANAGEMENT DISCHARGE SUMMARY PATIENT: CANDIDO LIZ UNIT: [id number] ADM DATE: 06/14/19 AGE: 78 : 38 SEX: M ROOM/BED: D.2231 AUTHOR: AUGIE LATHAM PHYSICIAN: REFERRING PHYSICIAN: AP PALACIOS DO DATE OF SERVICE: 06/15/19 Discharge Plan Patient Name: CANDIDO LIZ Facility: [facility]:[place] : 1940 Planned Disposition: Home Anticipated Discharge Date: 06/16/19 Discharge Date: Expected LOS: 2 Initial Reviewer: [email or web address] Initial Review Date: 06/15/2019 Generated: 06/15/19 1:18 pm Comments DCP- Discharge Planning Updated by [id number]: Antonella Gandara on 06/15/19 11:[address] Patient Name: CANDIDO LIZ Admission Status: ER Accout number: [id number] Admission Date: 06-14-2019 : 1940 Admission Diagnosis: Attending: AP PALACIOS Current LOS: 1 Anticipated DC Date: 06-16-2019 Planned Disposition: Home Primary Insurance: MEDICARE A & B Discharge Planning Comments: CM met with patient to complete initial dc planning assessment. CM educated patient on the CM role and verbal consent given by patient to complete assessment. Patient lives at home with his . At discharge patient plans to return and feels this is a safe discharge. CM discussed availability of home health, rehab services, and medical equipment. Patient denied known discharge needs at this time. I informed him and his that the doctor has ordered home health for stein catheter care. He states "I can take care of it if the nurse just shows me how." His also states that she feels like her will be able to take care of the catheter. The patient states he plans on returning to work as soon as released by his surgeon. He states that he is independent and very active. JENNIFER form signed for declining home health. I informed him to notify me or his nurse if he changes his mind and decides he needs home health on discharge. CM will continue to follow and will assist as needed with dc plans/needs. Barrel Filler: Antonella Gandara DCPIA - Discharge Planning Initial Assessment Updated by [id number]: Antonella Gandara on 06/15/19 12:06 pm * Is the patient Alert and Oriented? Yes * How many steps to enter\\exit or inside your home? 3/0 * PCP Dr. Koenig * Pharmacy [facility] on [address] * Preadmission Environment Home with Family * ADLs Independent * Equipment None * List name and contact numbers for known caregivers / representatives who currently or will assist patient after discharge: Jazmyn Liz - [facility] - [phone] * Verbal permission to speak to the caregivers and representatives has been obtained from the patient. Yes * Community resources currently utilized None * Additional services required to return to the preadmission environment? No * Can the patient safely return to the preadmission environment? Yes * Has this patient been hospitalized within the prior 30 days at any hospital? No Coverage Notice Reviewer: [id number] Andres Gandara Notice Issued Date-Time: 06/15/2019 11:30 Notice Type: Medicare Outpatient Observation Notice Notice Delivered To: Patient Relationship to Patient: Self Chief Minister Name: Delivery Method: HAND - Hand Delivered Cece Days: Prior Verbal Notification: Recipient Understood Notice: Yes Recipient Signature: Yes Med Rec Note Co-signed by Attending: Coverage Notice Comment: POLANCO explained, signed, given, copy placed in MR Reviewer: [id number] Andres Gandara Notice Issued Date-Time: 06/15/2019 11:39 Notice Type: Patient Choice Letter Notice Delivered To: Patient Relationship to Patient: Self Chief Minister Name: Delivery Method: HAND - Hand Delivered Cece Days: Prior Verbal Notification: Recipient Understood Notice: Yes Recipient Signature: Yes Med Rec Note Co-signed by Attending: Coverage Notice Comment: Refused HHS Last DP export: 06/15/19 11:10 a Patient Name: CANDIDO LIZ Page [phone] at 1218 All edits/amendments must be made on the electronic document DICTATION DATE: 06/15/19 1218 CUSTOMER DEVELOPMENT REPRESENTATIVE: NANETTE 06/15/19 1218 RPT#: [id number] DC DATE: STATUS: ADM IN [facility] [address] [place] [address] END OF REPORT
[2019-06-15 12:47] VITALS: Ht 177.8 cm; Wt 76.2 kg
[2019-06-15 13:12] VITALS: BP 125/70
[2019-06-15 16:21] LABS: % SATURATION 10 % (15-55); IRON 27 ug/dl (35-150); TOTAL IRON BIND CAPACITY 268 ug/dl (260-445); UNSAT IRON BIND CAPACITY 241 ug/dl (150-375)
[2019-06-15 18:02] VITALS: BP 125/63
--- NOTE | 2019-06-15 19:40 | NUR ---
PT LYING IN BED WITHOUT DISTRESS, AOX4. DENIES PAIN OR NEEDS. CARVAJAL DRAINING CLEAR YELLLOW URINE. CL IN REACH, WILL CTM
[2019-06-15 20:00] VITALS: BP 137/67
[2019-06-16] VITALS: BP 123/71
[2019-06-16 04:00] VITALS: BP 116/61
[2019-06-16 06:53] LABS: ALBUMIN 2.7 g/dL (3.4-5.0); ANION GAP 9.7 mmol/L (8-16); BILIRUBIN - TOTAL 0.98 mg/dL (0.2-1.3); CALCIUM 8.7 mg/dL (8.5-10.1); CARBON DIOXIDE 29.5 mmol/L (21.0-32.0); CREATININE - SERUM 1.7 mg/dL (0.6-1.3); POTASSIUM - SERUM 4.2 mmol/L (3.5-5.1); PROTEIN - SERUM 6.2 g/dL (6.4-8.2)
[2019-06-16 07:03] LABS: BASOPHILS 0.1 % (0-2); HEMATOCRIT 32.8 % (42.0-54.0); HEMOGLOBIN 10.5 g/dL (13.5-17.5); IMMATURE GRANULOCYTES 0.3 % (0-5); LYMPHOCYTES 16.8 % (15-50); MCH 26.1 pg (26.0-34.0); MCV 81.4 fL (80.0-100.0); MEAN PLATELET VOLUME 11.4 fL (7.4-10.4); MONOCYTES 10.8 % (2-11); PLATELET COUNT 142 10x3/uL (130-400); RBC 4.03 10x6/uL (4.20-6.10); RDW 14.5 % (11.5-14.5); WBC 7.8 10x3/uL (4.8-10.8)
[2019-06-16 09:08] VITALS: BP 112/54
--- NOTE | 2019-06-16 10:00 | NUR ---
CARVAJAL CATH DISCONTINUED. PATIENT TOLERATED WELL.
[2019-06-16 12:17] VITALS: BP 143/84
[2019-06-16] MEDS ORDERED: FLOMAX0.4 MG PO (14:35)
--- NOTE | 2019-06-16 14:53 | NUR ---
PATIENT ONLY ABLE TO VOID 200ML SINCE CARVAJAL CATH PULLED AT 1000. SCANNED BLADDER WITH 507 RESIDUAL NOTED.16F CARVAJAL CATH PLACED USING STERILE TECHNIQUE WITH 500ML CLEAR PALE YELLOW URINE TO BEDSIDE DRAINAGE, PATIENT TOLERATED WELL. NOTIFIED KENIA COLE APN THAT CARVAJAL WAS REPLACED
--- NOTE | 2019-06-16 16:16 | NUR ---
IV REMOVED WITH NO REDNESS OR EDEMA AT SITE. DISCHARGE INSTRUCTIONS GIVEN WITH PATIENT VOICING UNDERSTANDING. TAUGHT PATIENT CARVAJAL CATHETER CARE AND DRAINING OF CATHETER BAG WITH PATIENT VOICING UNDERSTANDING. PATIENT TAKEN BY WHEELCHAIR TO PRIVATE CAR
--- NOTE | 2019-06-18 08:24 | MORECARE ---
CASE MANAGEMENT DISCHARGE SUMMARY PATIENT: CANDIDO LIZ UNIT: [id number] ADM DATE: 06/15/19 AGE: 78 : 36 SEX: M ROOM/BED: D.2231 AUTHOR: AUGIE LATHAM PHYSICIAN: REFERRING PHYSICIAN: AP PALACIOS DO DATE OF SERVICE: 06/18/19 Discharge Plan Patient Name: CANDIDO LIZ Facility: [facility]:[place] : 1940 Planned Disposition: Home Anticipated Discharge Date: 06/16/19 Discharge Date: 06/16/2019 Expected LOS: 1 Initial Reviewer: [email or web address] Initial Review Date: 06/15/2019 Generated: 06/18/19 9:24 am DCP- Discharge Planning Updated by [email or web address]: Antonella Gandara on 06/15/19 11:[address] Patient Name: CANDIDO LIZ Admission Status: ER Accout number: [id number] Admission Date: 06-14-2019 : 1940 Admission Diagnosis: Attending: AP PALACIOS Current LOS: 1 Anticipated DC Date: 06-16-2019 Planned Disposition: Home Primary Insurance: MEDICARE A & B Discharge Planning Comments: CM met with patient to complete initial dc planning assessment. CM educated patient on the CM role and verbal consent given by patient to complete assessment. Patient lives at home with his . At discharge patient plans to return and feels this is a safe discharge. CM discussed availability of home health, rehab services, and medical equipment. Patient denied known discharge needs at this time. I informed him and his that the doctor has ordered home health for stein catheter care. He states "I can take care of it if the nurse just shows me how." His also states that she feels like her will be able to take care of the catheter. The patient states he plans on returning to work as soon as released by his surgeon. He states that he is independent and very active. JENNIFER form signed for declining home health. I informed him to notify me or his nurse if he changes his mind and decides he needs home health on discharge. CM will continue to follow and will assist as needed with dc plans/needs. Design Drafter: Antonella Gandara DCPIA - Discharge Planning Initial Assessment Updated by [id number]: Antonella Gandara on 06/15/19 12:06 pm * Is the patient Alert and Oriented? Yes * How many steps to enter\\exit or inside your home? 3/0 * PCP Dr. Koenig * Pharmacy [facility] on [address] * Preadmission Environment Home with Family * ADLs Independent * Equipment None * List name and contact numbers for known caregivers / representatives who currently or will assist patient after discharge: Jazmyn Liz - [facility] - [phone] * Verbal permission to speak to the caregivers and representatives has been obtained from the patient. Yes * Community resources currently utilized None * Additional services required to return to the preadmission environment? No * Can the patient safely return to the preadmission environment? Yes * Has this patient been hospitalized within the prior 30 days at any hospital? No Coverage Notice Reviewer: [email or web address] Gandara Notice Issued Date-Time: 06/15/2019 11:30 Notice Type: Medicare Outpatient Observation Notice Notice Delivered To: Patient Relationship to Patient: Self Senior Backup Administrator Name: Delivery Method: HAND - Hand Delivered Cece Days: Prior Verbal Notification: Recipient Understood Notice: Yes Recipient Signature: Yes Med Rec Note Co-signed by Attending: Coverage Notice Comment: POLANCO explained, signed, given, copy placed in MR Reviewer: [id number] Andres Gandara Notice Issued Date-Time: 06/15/2019 11:39 Notice Type: Patient Choice Letter Notice Delivered To: Patient Relationship to Patient: Self Senior Backup Administrator Name: Delivery Method: HAND - Hand Delivered Cece Days: Prior Verbal Notification: Recipient Understood Notice: Yes Recipient Signature: Yes Med Rec Note Co-signed by Attending: Coverage Notice Comment: Refused HHS Last DP export: 06/15/19 11:18 a Patient Name: CANDIDO LIZ Page [id number] at 0824 All edits/amendments must be made on the electronic document DICTATION DATE: 06/18/19823 MEDICAL RECORDS DIRECTOR: NANETTE 06/18/19823 RPT#: [id number] DC DATE:06/16/19 STATUS: DIS IN [address] [address] END OF REPORT
== END 2019-06-16 16:18 | disposition home or self-care (01) | DRG 725 ==
LOC: D.ER 04:06 → OBSVTIME 06:05 → D.MS 06:05
PROVIDERS: Family Medicine; Internal Medicine Nephrology; ADMIT Family Medicine; ATTEND Family Medicine
DX: N40.1 Benign prostatic hyperplasia with lower urinary tract symptoms (principal); G93.41 Metabolic encephalopathy; N17.9 Acute kidney failure, unspecified; R33.9 Retention of urine, unspecified; I10 Essential (primary) hypertension; I25.10 Atherosclerotic heart disease of native coronary artery without angina pectoris; D64.9 Anemia, unspecified; R33.8 Other retention of urine

== ENCOUNTER → 2019-06-24 16:16 | Outpatient (CLI) | payer MEDICARE, BC ==
[2019-06-15 12:47] VITALS: BMI 24.1
[~2019-06-24 16:16] MED LIST changes: +FLOMAX0.4 MG PO
== END | disposition home or self-care (01) ==
LOC: D.LABREF 16:16
PROVIDERS: ATTEND Surgery
DX: R33.9 Retention of urine, unspecified (principal)

== ENCOUNTER → 2019-08-04 13:10 | Outpatient (CLI) | payer MEDICARE, BC ==
[2019-06-15 12:47] VITALS: BMI 24.1
== END | disposition home or self-care (01) ==
LOC: D.US 13:10
PROVIDERS: ATTEND Internal Medicine Cardiovascular Disease
DX: I71.4 Abdominal aortic aneurysm, without rupture (principal); R33.9 Retention of urine, unspecified

== ENCOUNTER → 2020-05-03 11:03 | Outpatient (CLI) | payer MEDICARE, BC ==
[2019-06-15 12:47] VITALS: BMI 24.1
== END | disposition home or self-care (01) ==
LOC: D.US 03-22 10:30
PROVIDERS: ATTEND Internal Medicine Cardiovascular Disease
DX: I65.23 Occlusion and stenosis of bilateral carotid arteries (principal)

== ENCOUNTER → 2020-05-10 13:50 | Outpatient (CLI) | payer MEDICARE, BC ==
[2019-06-15 12:47] VITALS: BMI 24.1
== END | disposition home or self-care (01) ==
LOC: D.HCCECHO 13:50
PROVIDERS: ATTEND Internal Medicine Cardiovascular Disease
DX: I25.10 Atherosclerotic heart disease of native coronary artery without angina pectoris (principal)

== ENCOUNTER → 2021-03-15 08:29 | Outpatient (CLI) | payer MEDICARE, BC ==
[2019-06-15 12:47] VITALS: BMI 24.1
== END | disposition home or self-care (01) ==
LOC: D.US 08:29
PROVIDERS: ATTEND Thoracic Surgery (Cardiothoracic Vascular Surgery)
DX: I65.23 Occlusion and stenosis of bilateral carotid arteries (principal)

== ENCOUNTER → 2021-04-03 07:44 | Outpatient (CLI) | payer MEDICARE, BC ==
[2019-06-15 12:47] VITALS: BMI 24.1
== END | disposition home or self-care (01) ==
LOC: D.CT 03-29 09:30
PROVIDERS: ATTEND Thoracic Surgery (Cardiothoracic Vascular Surgery)
DX: I71.4 Abdominal aortic aneurysm, without rupture (principal)